=== PATIENT | female | born 1990 | race Caucasian/White ===

== ENCOUNTER 2020-05-31 16:13 | Emergency (ER) | payer BC, MEDICAID, OTHER ==
[2020-05-31] MEDS ORDERED: ACETAMINOPHEN TAB 325 MG TAB PO STA (19:26)
[2020-05-31] MEDS ORDERED: IBUPROFEN 600 MG TAB PO STA (19:26)
--- NOTE | 2020-05-31 19:42 | ED ---
URI HPI - General Chief Complaint: Upper Respiratory Infection Stated Complaint: SOB Time Seen by Provider: 05/31/20 19:26 Source: patient, family, RN notes reviewed Mode of arrival: wheelchair Limitations: altered mental status - History of Present Illness Initial Comments: Patient is a 29-year-old female that presents emergency department with her mot her complaining of fever, cough, shortness of breath. She does note that she was exposed on 05/27/2020 to a Covid-positive coworker. She stated that the first couple days she had no symptoms but starting Saturday she progressively started having an intermittent cough that was dry and a fever. She notes that it hasn't gotten any better over the last several days. She noted that she did get tested Saturday but has not gotten results yet from urgent care. Mother notes that she's been running 101-102 fever at home. Patient was in no apparent distress or pain while sitting up in bed during the exam and interview. She denied any chest pain headache nausea vomiting diarrhea constipation fatigue chills - Related Data Home Medications Medication Instructions Recorded Confirmed Multivitamins, Thera [Multivitamin 1 tab PO DAILY 05/31/20 05/31/20 (formulary)] Mv-Min/Vit C/Glut/Lysine/Hc124 1 tab PO DAILY PRN 05/31/20 05/31/20 [Airborne Tablet Chewable] Mv-Min/Vit C/Glut/Lysine/Hc124 2 tab PO HS PRN 05/31/20 05/31/20 [Airborne Tablet Chewable] Previous Rx's Medication Instructions Recorded Ascorbic Acid [Vitamin C] 1,000 mg PO DAILY 30 Days #30 05/31/20 tablet Zinc 100 mg PO DAILY 30 Days #60 tablet 05/31/20 predniSONE 50 mg PO DAILY #5 tab 05/31/20 Allergies Allergy/AdvReac Type Severity Reaction Status Date / Time Penicillins Allergy Anaphylaxis Verified 05/31/20 20:17 Review of Systems ROS Statement: Those systems with pertinent positive or pertinent negative responses have been documented in the HPI. ROS Other: All systems not noted in ROS Statement are negative. 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 History of Any Multi-Drug Resistant Organisms: None Reported Past Surgical History: Adenoidectomy, Ear Surgery, Orthopedic Surgery, Tonsillectomy Additional Past Surgical History / Comment(s): knee,tongue,eye surgery Past Psychological History: No Psychological Hx Reported Smoking Status: Never smoker Past Alcohol Use History: None Reported Past Drug Use History: None Reported General Exam Limitations: altered mental status General appearance: alert, in no apparent distress, obese Head exam: Present: atraumatic, normocephalic, normal inspection Eye exam: Present: normal appearance, PERRL, EOMI. Absent: scleral icterus, conjunctival injection, periorbital swelling ENT exam: Present: normal exam, mucous membranes moist Neck exam: Present: normal inspection. Absent: tenderness, meningismus, lymphadenopathy Respiratory exam: Present: decreased breath sounds. Absent: respiratory distress, wheezes, rales, rhonchi, stridor Cardiovascular Exam: Present: regular rate, normal rhythm, normal heart sounds. Absent: systolic murmur, diastolic murmur, rubs, gallop, clicks GI/Abdominal exam: Present: soft, normal bowel sounds. Absent: distended, tenderness, guarding, rebound, rigid Extremities exam: Present: normal inspection, full ROM, normal capillary refill. Absent: tenderness, pedal edema, joint swelling, calf tenderness Neurological exam: Present: alert, oriented X3, CN II-XII intact Psychiatric exam: Present: normal affect, normal mood Skin exam: Present: warm, dry, intact, normal color. Absent: rash Course Vital Signs 05/31/20 05/31/20 05/31/20 18:56 19:59 21:35 Temperature 99.9 F H 100.3 F H Pulse Rate 116 H 119 H 110 H Respiratory 22 18 18 Rate Blood Pressure 144/73 124/84 103/67 O2 Sat by Pulse 94 L 91 L 90 L Oximetry Medical Decision Making - Medical Decision Making 21-year-old female complaining of cough, fever, Covid exposure. Chest x-ray, Covid test, 650 mg of Tylenol and 600 mg Motrin ordered. Covid-positive. Patient informed of monoclonal antibody therapy as she does meet criteria, patient declined monoclonal antibody therapy. Mother was irritated at length of stay in the fact that an M.D. did not see her. She was also upset that we were unable to give anything other than Tylenol Motrin for fever. Nurse Yamilet convinced patient's mom to do monoclonal antibody therapy after I attended several times to educate her on it. Case discussed with Dr. Rizo, patient discharged home. - Lab Data Lab Results 05/31/20 Range/Units 19:01 Coronavirus (PCR) Detected A (Not Detectd) - Radiology Data Radiology results: report reviewed, image reviewed Chest x-ray: Bilateral pulmonary infiltrates and atelectasis. No obvious heart failure. Normal heart. Disposition Clinical Impression: COVID-19 Disposition: HOME SELF-CARE Condition: Stable Instructions (If sedation given, give patient instructions): Coronavirus Disease 2019 (COVID-19), Upper Respiratory Infection (ED) Additional Instructions: Please return to the Emergency Department if symptoms worsen or any other concerns. Conservative management with Tylenol Motrin alternating every several hours for symptomatically control of fever and general muscle aches. Increase oral fluids, rest. May come back for monoclonal antibody therapy if symptoms worsen or U decided that he wanted treatment. Follow-up with primary care as soon as possible. Her CBC guidelines and quarantine for 10-14 days from onset of symptoms. Take medications as prescribed. Prescriptions: predniSONE 50 mg PO DAILY #5 tab Ascorbic Acid [Vitamin C] 1,000 mg PO DAILY 30 Days #30 tablet Zinc 100 mg PO DAILY 30 Days #60 tablet Is patient prescribed a controlled substance at d/c from ED?: No Referrals: Nohelia Ervin DO [Primary Care Provider] - 1-2 days Time of Disposition: 22:23
--- NOTE | 2020-05-31 19:47 | XR ---
EXAMINATION TYPE: XR chest 2V DATE OF EXAM: 05/31/2020 COMPARISON: NONE HISTORY: Short of breath TECHNIQUE: 2 view FINDINGS: There is some mild infiltrate and atelectasis in the mid and lower lung johnson. Heart size is normal. There is no pleural effusion. Bony thorax is intact. IMPRESSION: Bilateral pulmonary infiltrates and atelectasis. No obvious heart failure. Normal heart.
[2020-05-31] MEDS ORDERED: BAMLANIVIMAB (EUA) 700 MG, ETESEVIMAB (EUA) 1,400 MG in SODIUM CHLORIDE 0.9% 50 ML IVPB ONE (21:30)
[2020-05-31 23:21] VITALS: BP 113/73; PULSE 99; RESP 16; TEMP 98.5
== END 2020-05-31 23:00 | disposition home or self-care (01) ==
LOC: EEVIPCON 16:13 → EC 16:13
DX: U07.1 COVID-19 (principal); Z88.0 Allergy status to penicillin
CPT/HCPCS: 71046; 87635; 96365; 99285

== ENCOUNTER → 2020-06-13 | Outpatient (CLI) | payer BC, MEDICAID, OTHER ==
--- NOTE | 2020-06-13 21:14 | XR ---
EXAMINATION TYPE: XR chest 2V DATE OF EXAM: 06/13/2020 COMPARISON: 05/31/2020 HISTORY: 29-year-old female U07.1, shortness of breath and increased heart rate. TECHNIQUE: Frontal and lateral views FINDINGS: Heart normal size. Aorta and pulmonary vasculature within normal limits. Large patient body habitus l imits evaluation but there has been significant improvement in aeration. No alfonzo consolidation remai ns. No pleural effusion. IMPRESSION: Significant interval improvement. No residual infiltrates are identified.
== END | disposition home or self-care (01) ==
LOC: LABWHC1 16:05
PROVIDERS: ATTEND Family Medicine
DX: U07.1 COVID-19 (principal); R00.2 Palpitations
CPT/HCPCS: 36415; 71046; 93005

== ENCOUNTER → 2020-11-08 | Outpatient (CLI) | payer BC, MEDICAID, OTHER ==
--- NOTE | 2020-11-08 11:14 | ECHOF ---
Referral Reason:R00.0 tachycardia MEASUREMENTS -------- HEIGHT: 162.6 cm WEIGHT: 113.4 kg BP: RVIDd: 3.2 cm (< 3.3) IVSd: 1.2 cm (0.6 - 1.1) LVIDd: 4.8 cm (3.9 - 5.3) LVPWd: 1.2 cm (0.6 - 1.1) IVSs: 1.5 cm LVIDs: 3.9 cm LVPWs: 1.2 cm LAESV Index (A-L): 15.36 ml/m Ao Diam: 2.2 cm (2.0 - 3.7) AV Cusp: 1.8 cm (1.5 - 2.6) LA Diam: 3.6 cm (2.7 - 3.8) MV E Marcus: 1.27 m/s MV DecT: 203 ms MV A Marcus: 0.13 m/s MV E/A Ratio: 10.03 FINDINGS -------- Resting tachycardia (HR>100bpm). This was a technically difficult study with suboptimal views. The left ventricular size is normal. There is mild concentric left ventricular hypertrophy. Overa ll left ventricular systolic function is low-normal with, an EF between 50 - 55 %. The right ventricle is normal in size. Normal LA size by volume 22+/-6 ml/m2. The right atrial size is normal. 5.0mg of Lumason was utilized for enhancement of images Interatrial and interventricular septum intact. The aortic valve was not well visualized. There is no evidence of aortic regurgitation. There is no evidence of aortic stenosis. The mitral valve was not well visualized. No mitral regurgitation. The tricuspid valve was not well visualized. Unable to estimate RVSP due to inadequate TR jet spect ral doppler profile. There is no pulmonic regurgitation present. The aortic root size is normal. IVC Not well visulized. There is no pericardial effusion. CONCLUSIONS -------- 1. This was a technically difficult study with suboptimal views. 2. The left ventricular size is normal. 3. There is mild concentric left ventricular hypertrophy. 4. Overall left ventricular systolic function is low-normal with, an EF between 50 - 55 %. ROOM CLEANER: Latoya Tatum [facility]
== END | disposition home or self-care (01) ==
LOC: RADECHMAIN 08:15
PROVIDERS: ATTEND Family Medicine
DX: R00.0 Tachycardia, unspecified (principal)
CPT/HCPCS: 93306; Q9950

== ENCOUNTER → 2024-05-14 | Outpatient (CLI) | payer BC, MEDICAID, OTHER ==
--- NOTE | 2024-05-15 07:39 | XR ---
EXAMINATION TYPE: XR foot complete RT DATE OF EXAM: 05/14/2024 4:48 PM COMPARISON: None CLINICAL INDICATION: Female, 33 years old with history of L03.031, M79.671; PHH, pain TECHNIQUE: XR foot complete RT examined in the AP, oblique, and lateral projections. FINDINGS: Soft tissue swelling without evidence of subcutaneous gas or erosion to suggest osteomyelitis involvi ng the first digi. No evidence of any acute osseous pathology. IMPRESSION: Soft tissue swelling of the first digit without evidence for osteomyelitis. [facility], , 05/15/2024 7:36 AM
== END | disposition home or self-care (01) ==
LOC: RADXRMAIN 16:36
PROVIDERS: ATTEND Podiatrist Primary Podiatric Medicine
DX: L03.031 Cellulitis of right toe (principal); M79.89 Other specified soft tissue disorders

== ENCOUNTER 2024-09-09 14:58 | Inpatient (IN) | payer BC, MEDICAID, OTHER ==
[2024-09-09 16:10] LABS: Basophils # (A) 0.04 10*3/uL (0.00-0.10); Basophils % (A) 0.3 %; Eosinophils # (A) 0.00 10*3/uL (0.04-0.35); Eosinophils % (A) 0.0 %; HCT 43.0 % (37.2-46.3); HGB 15.0 g/dL (12.0-15.0); Lymphocytes # (A) 0.97 10*3/uL (0.90-5.00); Lymphocytes % (A) 6.1 %; MCH 29.2 pg (27.0-32.0); MCHC 34.9 g/dL (32.0-37.0); MCV 83.7 fL (80.0-97.0); Monocytes # (A) 1.18 10*3/uL (0.20-1.00); Monocytes % (A) 7.4 %; Neutrophils # (A) 13.57 10*3/uL (1.80-7.70); Neutrophils % (A) 85.5 %; Platelet Count 208 10*3/uL (140-440); RBC 5.14 10*6/uL (4.10-5.20); RDW 12.9 % (11.5-14.5); WBC 15.87 10*3/uL (4.50-10.00)
[2024-09-09 16:20] LABS: ALT 23 U/L (4-34); AST 19 U/L (14-36); African American GFR (CKD) >90 (>60 ml/min/1.73 sqM); Albumin 4.3 g/dL (3.5-5.0); Alkaline Phosphatase 106 U/L (38-126); Anion Gap 13 mmol/L; Blood Urea Nitrogen 9 mg/dL (7-17); Calcium 9.2 mg/dL (8.4-10.2); Carbon Dioxide 23 mmol/L (22-30); Chloride 103 mmol/L (98-107); Glucose 122 mg/dL (74-99); Non-African American GFR(CKD) >90 (>60 ml/min/1.73 sqM); Potassium 4.3 mmol/L (3.5-5.1); Sodium 139 mmol/L (137-145); Total Protein 7.4 g/dL (6.3-8.2)
[2024-09-09 16:21] LABS: INR 1.0 (<1.2); Partial Thromboplastin Time 25.5 sec (22.0-30.0); Prothrombin Time 11.1 sec (10.0-12.5)
--- NOTE | 2024-09-09 16:23 | XR ---
EXAMINATION TYPE: XR chest 2V DATE OF EXAM: 09/09/2024 4:19 PM COMPARISON: Chest radiographs from 06/13/2020. CLINICAL INDICATION: Female, 33 years old with history of difficulty breathing; [facility] TECHNIQUE: XR chest 2V Frontal and lateral views of the chest. FINDINGS: Lungs/Pleura: Left midlung airspace opacities. There is no evidence of pleural effusion, focal consol idation, or pneumothorax. Pulmonary vascularity: Unremarkable. Heart/mediastinum: Cardiomediastinal silhouette is unremarkable. Musculoskeletal: No acute osseous pathology. IMPRESSION: Left midlung airspace opacities correlate for pneumonia. [facility], , 09/09/2024 4:20 PM
--- NOTE | 2024-09-09 16:45 | ED ---
General Adult HPI - General Chief complaint: Shortness of Breath Stated complaint: shortness of breath Time Seen by Provider: 09/09/24 16:35 Source: patient, family, RN notes reviewed Mode of arrival: wheelchair Limitations: no limitations - History of Present Illness Initial comments: Patient is a 33-year-old female present to the emergency department with vomiting and dyspnea. Symptoms started just couple days ago. Last emesis was around 1130 this morning. Heart rate has been higher than normal at home. History provided by family members as patient has developmental delay. No history of previous lung disease. - Related Data Home Medications Medication Instructions Recorded Confirmed Multivitamins, Thera [Multivitamin 1 tab PO DAILY 05/31/20 05/31/20 (formulary)] Mv-Min/Vit C/Glut/Lysine/Hc124 1 tab PO DAILY PRN 05/31/20 05/31/20 [Airborne Tablet Chewable] Mv-Min/Vit C/Glut/Lysine/Hc124 2 tab PO HS PRN 05/31/20 05/31/20 [Airborne Tablet Chewable] Previous Rx's Medication Instructions Recorded Ascorbic Acid [Vitamin C] 1,000 mg PO DAILY 30 Days #30 05/31/20 tablet Zinc 100 mg PO DAILY 30 Days #60 tablet 05/31/20 predniSONE 50 mg PO DAILY #5 tab 05/31/20 Allergies Allergy/AdvReac Type Severity Reaction Status Date / Time Penicillins Allergy Anaphylaxis Verified 05/31/20 20:17 Review of Systems ROS Statement: Those systems with pertinent positive or pertinent negative responses have been documented in the HPI. ROS Other: All systems not noted in ROS Statement are negative. 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 History of Any Multi-Drug Resistant Organisms: None Reported Past Surgical History: Adenoidectomy, Ear Surgery, Orthopedic Surgery, Tonsillectomy Additional Past Surgical History / Comment(s): knee,tongue,eye surgery Past Psychological History: No Psychological Hx Reported Smoking Status: Never smoker Past Alcohol Use History: None Reported Past Drug Use History: None Reported General Exam Limitations: no limitations General appearance: alert Head exam: Present: normocephalic Eye exam: Present: normal appearance Neck exam: Present: normal inspection Respiratory exam: Present: rales (Left midlung) Cardiovascular Exam: Present: tachycardia GI/Abdominal exam: Present: soft. Absent: tenderness Extremities exam: Present: normal inspection Neurological exam: Present: alert Psychiatric exam: Present: normal affect, normal mood Skin exam: Present: normal color Course Vital Signs 09/09/24 09/09/24 15:18 16:48 Temperature 98.7 F Pulse Rate 118 H 117 H Respiratory 24 30 H Rate Blood Pressure 184/79 134/73 O2 Sat by Pulse 98 98 Oximetry EKG Findings - EKG Results: EKG: interpreted by ERMD (Left axis. Poor R wave progression. Nonspecific T waves.), sinus rhythm EKG shows: tachycardia Medical Decision Making - Medical Decision Making Was pt. sent in by a medical professional or institution (BRAD Moore, ENGRAVING SUPERVISOR, urgent care, hospital, or alf...) When possible be specific @ -No Did you speak to anyone other than the patient for history (EMS, parent, family, police, friend...)? What history was obtained from this source @ -Mother is present and provides history as patient has developmental delay and is a very poor historian Did you review nursing and triage notes (agree or disagree)? Why? @ -I reviewed and agree with nursing and triage notes Were old charts reviewed (outside hosp., previous admission, EMS record, old EKG, old radiological studies, urgent care reports/EKG's, alf records)? Report findings @ -No old charts were reviewed Differential Diagnosis (chest pain, altered mental status, abdominal pain women, abdominal pain men, vaginal bleeding, weakness, fever, dyspnea, syncope, headache, dizziness, GI bleed, back pain, seizure, CVA, palpatations, mental health, musculoskeletal)? @ -Differential Dyspnea: Coronary syndrome, arrhythmia, tamponade, asthma, COPD, pulmonary embolism, pneumonia, pneumothorax, pulmonary effusion, anaphylaxis, diabetic ketoacidosis, flailed chest, pulmonary contusion, diaphragmatic rupture, anemia, neuromuscular, this is not meant to be an all-inclusive list. EKG interpreted by me (3pts min.). @ -As above X-rays interpreted by me (1pt min.). @ -Chest x-ray shows left-sided infiltrate CT interpreted by me (1pt min.). @ -None done U/S interpreted by me (1pt. min.). @ -None done What testing was considered but not performed or refused? (CT, X-rays, U/S, labs)? Why? @ -None What meds were considered but not given or refused? Why? @ -None Did you discuss the management of the patient with other professionals (professionals i.e. , PA, ENGRAVING SUPERVISOR, lab, RT, psych nurse, social security specialist, wheelchair van driver, teacher, fire prevention officer, egg caser)? Give summary @ -Dr. Harper to admit, Dr. She will Was smoking cessation discussed for >3mins.? @ -No Was critical care preformed (if so, how long)? @ -33 minutes critical care time Were there social determinants of health that impacted care today? How? (Homelessness, low income, unemployed, alcoholism, drug addiction, transportation, low edu. Level, literacy, decrease access to med. care, usp, rehab)? @ -No Was there de-escalation of care discussed even if they declined (Discuss DNR or withdrawal of care, Hospice)? DNR status @ -No What co-morbidities impacted this encounter? (DM, HTN, Smoking, COPD, CAD, Cancer, CVA, ARF, Chemo, Hep., AIDS, mental health diagnosis, sleep apnea, morbid obesity)? @ -None Was patient admitted / discharged? Hospital course, mention meds given and route, prescriptions, significant lab abnormalities, going to OR and other pertinent info. @ -Patient presents with vomiting and dyspnea. Patient does have pneumonia on x-ray with elevated white count and meets SIRS criteria. There is concern for s epsis diagnosed at 1640. Blood culture, lactic acid and IV antibiotics have all been ordered. Admission orders written. Patient and family are updated on results and plan. Undiagnosed new problem with uncertain prognosis? @ -No Drug Therapy requiring intensive monitoring for toxicity (Heparin, Nitro, Insulin, Cardizem)? @ -No Were any procedures done? @ -No Diagnosis/symptom? @ -Pneumonia Acute, or Chronic, or Acute on Chronic? @ -Acute Uncomplicated (without systemic symptoms) or Complicated (systemic symptoms)? @ -Complicated with sepsis Side effects of treatment? @ -No Exacerbation, Progression, or Severe Exacerbation? @ -No Poses a threat to life or bodily function? How? (Chest pain, [place], [place], pneumonia, PE, COPD, DKA, ARF, appy, cholecystitis, CVA, Diverticulitis, Homicidal, Suicidal, threat to staff... and all critical care pts) @ -Threat to pulmonary function - Lab Data Result diagrams: 09/09/24 15:47 09/09/24 15:47 Lab Results 09/09/24 09/09/24 09/09/24 Range/Units 15:47 15:47 15:47 WBC 15.87 H (4.50-10.00) 10*3/uL RBC 5.14 (4.10-5.20) 10*6/uL Hgb 15.0 (12.0-15.0) g/dL Hct 43.0 (37.2-46.3) % MCV 83.7 (80.0-97.0) fL MCH 29.2 (27.0-32.0) pg MCHC 34.9 (32.0-37.0) g/dL Plt Count 208 (140-440) 10*3/uL MPV 10.3 (9.5-12.2) fL Immature Gran % (Auto) 0.7 % Neutrophils % 85.5 % Lymphocytes % 6.1 % Monocytes % 7.4 % Eosinophils % 0.0 % Basophils % 0.3 % Immature Gran # 0.11 H (0.00-0.04) 10*3/uL Neutrophils # 13.57 H (1.80-7.70) 10*3/uL Lymphocytes # 0.97 (0.90-5.00) 10*3/uL Monocytes # 1.18 H (0.20-1.00) 10*3/uL Eosinophils # 0.00 L (0.04-0.35) 10*3/uL Basophils # 0.04 (0.00-0.10) 10*3/uL PT 11.1 (10.0-12.5) sec INR 1.0 (<1.2) APTT 25.5 (22.0-30.0) sec Sodium 139 (137-145) mmol/L Potassium 4.3 (3.5-5.1) mmol/L Chloride 103 (98-107) mmol/L Carbon Dioxide 23 (22-30) mmol/L Anion Gap 13 mmol/L BUN 9 (7-17) mg/dL Creatinine 0.70 (0.52-1.04) mg/dL Est GFR (CKD-EPI)AfAm >90 (>60 ml/min/1.73 sqM) Est GFR (CKD-EPI)NonAf >90 (>60 ml/min/1.73 sqM) Glucose 122 H (74-99) mg/dL Plasma Lactic Acid Gavin (0.7-2.0) mmol/L Calcium 9.2 (8.4-10.2) mg/dL Total Bilirubin 1.4 H (0.2-1.3) mg/dL AST 19 (14-36) U/L ALT 23 (4-34) U/L Alkaline Phosphatase 106 (38-126) U/L Troponin I (0.000-0.034) ng/mL Total Protein 7.4 (6.3-8.2) g/dL Albumin 4.3 (3.5-5.0) g/dL 09/09/24 09/09/24 Range/Units 15:47 15:47 WBC (4.50-10.00) 10*3/uL RBC (4.10-5.20) 10*6/uL Hgb (12.0-15.0) g/dL Hct (37.2-46.3) % MCV (80.0-97.0) fL MCH (27.0-32.0) pg MCHC (32.0-37.0) g/dL Plt Count (140-440) 10*3/uL MPV (9.5-12.2) fL Immature Gran % (Auto) % Neutrophils % % Lymphocytes % % Monocytes % % Eosinophils % % Basophils % % Immature Gran # (0.00-0.04) 10*3/uL Neutrophils # (1.80-7.70) 10*3/uL Lymphocytes # (0.90-5.00) 10*3/uL Monocytes # (0.20-1.00) 10*3/uL Eosinophils # (0.04-0.35) 10*3/uL Basophils # (0.00-0.10) 10*3/uL PT (10.0-12.5) sec INR (<1.2) APTT (22.0-30.0) sec Sodium (137-145) mmol/L Potassium (3.5-5.1) mmol/L Chloride (98-107) mmol/L Carbon Dioxide (22-30) mmol/L Anion Gap mmol/L BUN (7-17) mg/dL Creatinine (0.52-1.04) mg/dL Est GFR (CKD-EPI)AfAm (>60 ml/min/1.73 sqM) Est GFR (CKD-EPI)NonAf (>60 ml/min/1.73 sqM) Glucose (74-99) mg/dL Plasma Lactic Acid Gavin 1.6 (0.7-2.0) mmol/L Calcium (8.4-10.2) mg/dL Total Bilirubin (0.2-1.3) mg/dL AST (14-36) U/L ALT (4-34) U/L Alkaline Phosphatase (38-126) U/L Troponin I <0.012 (0.000-0.034) ng/mL Total Protein (6.3-8.2) g/dL Albumin (3.5-5.0) g/dL Disposition Clinical Impression: Pneumonia Disposition: ADMITTED IP TO THIS [facility] Condition: Serious Is patient prescribed a controlled substance at d/c from ED?: No Referrals: Nohelia Ervin DO [Primary Care Provider] - 1-2 days Time of Disposition: 16:52
[2024-09-09] MEDS ORDERED: PNEUMONIA PROTOCOL UTILIZED 1 EACH MISC PO PRN (16:46)
[2024-09-09] MEDS: ONDANSETRON 4 MG/2 ML VIAL IVP STA (16:54)
[2024-09-09] MEDS: FAMOTIDINE 20 MG/2 ML VIAL IV STA (16:54)
[2024-09-09] MEDS: SODIUM CHLORIDE 0.9% 1,000 ML IV SCH (17:13)
[2024-09-09] MEDS: AZITHROMYCIN 500 MG in SODIUM CHLORIDE 0.9% 250 ML IVPB STA (17:47)
[2024-09-09] MEDS: ACETAMINOPHEN TAB 500 MG TAB PO STA (17:47)
[2024-09-09] MEDS: IBUPROFEN 600 MG TAB PO STA (17:47)
--- NOTE | 2024-09-09 21:30 | P.HPIM ---
History of Present Illness H&P Date: 09/09/24 Chief Complaint: Cough This is a pleasant 33-year-old patient with some mental impairment. History is obtained by patient's mother who is a nurse at the bedside. 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 Diagnosed by Dr. Villatoro at [facility]. It gives patient some mental impairment. Patient is able to read and do math. Patient also has a stiff hip. Also has trouble with the knee but high risk for surgery at the present time. 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 Has tachycardia resulting from COVID. On Saturday that is 4 days ago started up with a dry cough. Symptoms gradually became worse. And much so a lot of coughing yesterday. No no obvious fever at home. No sputum production. Decreased appetite. Finally decided come to the ER. In the ER patient did spike a fever 104. And a heart rate of 122. Being septic. Being admitted for the same. Review of system could not be done because patient rather tired Social history: Patient lives with her parents. No alcohol no smoking Physical examination: VITAL SIGNS: 104, 122, 24, 134 x 73, 92% room air upon presentation GENERAL: BMI 44.6, reclining in bed a bit tired slightly lethargic. Perspiring. EYES: Pupils equal. Conjunctiva melquiades l. HEENT: External appearance of nose and ears normal, oral cavity grossly normal. NECK: JVD not raised; masses not palpable. HEART: First and second heart sounds are normal; no edema. LUNGS: Respiratory rate increased, diminished breath sounds. ABDOMEN: Soft, nontender, liver spleen not palpable, no masses palpable. PSYCH: Tired lethargic but able to answer some simple questions l. MUSCULOSKELETAL:No Clubbing/cyanosis;muscles-grossly intact NEUROLOGICAL: Cranial nerves grossly intact; no facial asymmetry, power and sensation grossly intact. LYMPHATICS: No lymph nodes palpable in the axilla and neck INVESTIGATIONS, reviewed in the clinical context: September 09, 2024: White count 15.8 hemoglobin 15 platelets 208 sodium 139 potassium 4.3 BUN 9 creatinine 0.7 Troponin I less than 0.012 EKG tracing personally reviewed by me-normal sinus rhythm. Heart rate 111 Chest x-ray film personally reviewed by me-significant infiltrate in the left middle lower lobe Assessment plan: - Severe bilobar pneumonia suspect gram-negative organism, causing hypoxic sepsis IV ceftriaxone, IV Zithromax IV fluids. 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 Currently high risk for surgery being followed by orthopedics. - Acute hypoxic respiratory failure from pneumonia Supplemental oxygen Care was discussed with patient by the bedside. Questions answered. 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 History of Any Multi-Drug Resistant Organisms: None Reported Past Surgical History: Adenoidectomy, Ear Surgery, Orthopedic Surgery, Tonsillectomy Additional Past Surgical History / Comment(s): knee,tongue,eye surgery Past Psychological History: No Psychological Hx Reported Smoking Status: Never smoker Past Alcohol Use History: None Reported Past Drug Use History: None Reported Medications and Allergies Home Medications Medication Instructions Recorded Confirmed Type Multivitamins, Thera [Multivitamin 2 tab PO DAILY 05/31/20 09/09/24 History (formulary)] Mv-Min/Vit C/Glut/Lysine/Hc124 3 tab PO DAILY 05/31/20 09/09/24 History [Airborne Tablet Chewable] Metoprolol Succinate (ER) [Toprol 100 mg PO DAILY 09/09/24 09/09/24 History XL] Metoprolol Succinate [Metoprolol 25 mg PO HS 09/09/24 09/09/24 History Succinate ER] Allergies Allergy/AdvReac Type Severity Reaction Status Date / Time Penicillins Allergy Anaphylaxis Verified 09/09/24 17:55 Physical Exam Vitals: Vital Signs Temp Pulse Resp BP Pulse Ox 09/09/24 21:00 86 16 122/65 95 09/09/24 20:01 98.7 F 92 20 122/65 97 09/09/24 18:34 100.6 F H 109 H 19 107/59 97 09/09/24 17:33 104 F H 122 H 24 134/73 92 L 09/09/24 16:48 117 H 30 H 134/73 98 09/09/24 15:18 98.7 F 118 H 24 184/79 98 Intake and Output 09/09/24 09/09/24 09/09/24 06:59 14:59 22:59 Other: Weight 117.934 kg Results CBC & Chem 7: 09/09/24 15:47 09/09/24 15:47 Labs: Abnormal Lab Results - Last 24 Hours (Table) 09/09/24 09/09/24 Range/Units 15:47 15:47 WBC 15.87 H (4.50-10.00) 10*3/uL Immature Gran # 0.11 H (0.00-0.04) 10*3/uL Neutrophils # 13.57 H (1.80-7.70) 10*3/uL Monocytes # 1.18 H (0.20-1.00) 10*3/uL Eosinophils # 0.00 L (0.04-0.35) 10*3/uL Glucose 122 H (74-99) mg/dL Total Bilirubin 1.4 H (0.2-1.3) mg/dL
[2024-09-09] MEDS: ENOXAPARIN 40 MG/0.4 ML SYRINGE SQ SCH (22:19)
[2024-09-09] MEDS: LACTATED RINGERS 1,000 ML IV SCH (23:04)
--- NOTE | 2024-09-10 07:21 | XR ---
EXAMINATION TYPE: XR chest 2V DATE OF EXAM: 09/10/2024 6:55 AM COMPARISON: Chest radiographs from 09/09/2024 TECHNIQUE: XR chest 2V Frontal and lateral views of the chest. CLINICAL INDICATION:Female, 33 years old with history of pneumonia; FINDINGS: Lungs/Pleura: No pleural effusion or pneumothorax. Bilateral multifocal patchy airspace opacities. Pulmonary vascularity: Unremarkable. Heart/mediastinum: Cardiomediastinal silhouette is enlarged and stable. Musculoskeletal: No acute osseous pathology. IMPRESSION: Bilateral multifocal patchy airspace opacities concerning for pneumonia. [facility], , 09/10/2024 7:18 AM
[2024-09-10] MEDS: METOPROLOL SUCCINATE (ER) 100 MG TAB.ER.24H PO SCH (08:46)
[2024-09-10] MEDS: MULTIVITAMINS, THERA 1 EACH TAB PO SCH (08:46)
[2024-09-10] MEDS: METOPROLOL TARTRATE 25 MG TAB PO SCH (14:26)
[2024-09-10] MEDS: NAPROXEN 250 MG TAB PO PRN (14:27)
[2024-09-10] MEDS: AZITHROMYCIN 500 MG TAB PO SCH (17:06)
--- NOTE | 2024-09-10 17:54 | P.PN ---
Progress Note - Text Progress Note Date: 09/10/24 Chief Complaint: Cough This is a pleasant 33-year-old patient with some mental impairment. History is obtained by patient's mother who is a nurse at the bedside. 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 Diagnosed by Dr. Villatoro at [facility]. It gives patient some mental impairment. Patient is able to read and do math. Patient also has a stiff hip. Also has trouble with the knee but high risk for surgery at the present time. 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 Has tachycardia resulting from COVID. On Saturday that is 4 days ago started up with a dry cough. Symptoms gradually became worse. And much so a lot of coughing yesterday. No no obvious fever at home. No sputum production. Decreased appetite. Finally decided come to the ER. In the ER patient did spike a fever 104. And a heart rate of 122. Being septic. Being admitted for the same. September 10: Patient admitted with severe sepsis pneumonia. IV ceftriaxone. Lactated Ringer's and IV ceftriaxone. Patient was seen this morning. Up in a chair. Had some chills. Grandmother at the bedside. Discussed. Some tachycardia. Lopressor increased to initially 25 twice daily.. Coughing is decreased. Had all of breakfast. Active Medications Azithromycin (Azithromycin 500 Mg Tab) 500 mg PO DAILY@1700 [facility]; Protocol Stop: 09/11/24 17:01 Last Admin: 09/10/24 17:06 Dose: 500 mg Enoxaparin Sodium (Enoxaparin 40 Mg/0.4 Ml Syringe) 40 mg SQ DAILY [facility] Last Admin: 09/10/24 08:44 Dose: Not Given Lactated Ringer's (Lactated Ringers) 1,000 mls @ 150 mls/hr IV .Q6H40M [facility] Last Admin: 09/10/24 17:11 Dose: Not Given Ceftriaxone Sodium 2 gm/ (Sodium Chloride) 50 mls @ 100 mls/hr IVPB Q12H [facility]; Protocol Stop: 09/11/24 17:29 Last Admin: 09/10/24 17:06 Dose: 100 mls/hr Metoprolol Succinate (Metoprolol Succinate (Er) 100 Mg Tab.Er.24h) 100 mg PO DAILY [facility] Last Admin: 09/10/24 08:46 Dose: 100 mg Metoprolol Tartrate (Metoprolol Tartrate 25 Mg Tab) 25 mg PO BID [facility] Last Admin: 09/10/24 14:26 Dose: 25 mg Miscellaneous Information (Pneumonia Protocol Utilized 1 Each Misc) 1 each PO ONCE PRN PRN Reason: Per Protocol Multivitamins (Multivitamins, Thera 1 Each Tab) 1 each PO DAILY [facility] Last Admin: 09/10/24 08:46 Dose: 1 each Naproxen (Naproxen 250 Mg Tab) 250 mg PO Q8HR PRN PRN Reason: pain Last Admin: 09/10/24 14:27 Dose: 250 mg Social history: Patient lives with her parents. No alcohol no smoking Physical examination: VITAL SIGNS: Tmax 100.6 yesterday evening, 118, 16, 160 x 83, 98% 2 L GENERAL: BMI 44.6, up in a recliner. Perspiring. EYES: Pupils equal. Conjunctiva melquiades l. HEENT: External appearance of nose and ears normal, oral cavity grossly normal.. 2 keloids on the right side of the neck NECK: JVD not raised; masses not palpable. HEART: First and second heart sounds are normal; no edema. LUNGS: Respiratory rate increased, diminished breath sounds. ABDOMEN: Soft, nontender, liver spleen not palpable, no masses palpable. PSYCH: Tired lethargic but able to answer some simple questions l. MUSCULOSKELETAL:No Clubbing/cyanosis;muscles-grossly intact NEUROLOGICAL: Cranial nerves grossly intact; no facial asymmetry, power and sensation grossly intact. LYMPHATICS: No lymph nodes palpable in the axilla and neck INVESTIGATIONS, reviewed in the clinical context: September 09, 2024: White count 15.8 hemoglobin 15 platelets 208 sodium 139 potassium 4.3 BUN 9 creatinine 0.7 Troponin I less than 0.012 EKG tracing personally reviewed by me-normal sinus rhythm. Heart rate 111 Chest x-ray film personally reviewed by me-significant infiltrate in the left middle lower lobe Assessment plan: - Severe bilobar pneumonia suspect gram-negative organism, causing hypoxic sepsis: Some improvement IV ceftriaxone, IV Zithromax IV fluids. 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 Currently high risk for surgery being followed by orthopedics. - Acute hypoxic respiratory failure from pneumonia Supplemental oxygen Care was discussed with the patient and the grandmother at the bedside. Past Medical History Additional Past Medical History / Comment(s): leocnio taybi syndrome History of Any Multi-Drug Resistant Organisms: None Reported Past Surgical History: Adenoidectomy, Ear Surgery, Orthopedic Surgery, Tonsillectomy Additional Past Surgical History / Comment(s): knee,tongue,eye surgery Past Psychological History: No Psychological Hx Reported Smoking Status: Never smoker Past Alcohol Use History: None Reported Past Drug Use History: None Reported
[2024-09-10] MEDS: ACETAMINOPHEN TAB 500 MG TAB PO PRN (21:21)
[2024-09-10] MEDS: LEVOFLOXACIN 750 MG TAB PO SCH (23:07)
[2024-09-11 04:39] LABS: ALT 64 U/L (4-34); AST 123 U/L (14-36); African American GFR (CKD) >90 (>60 ml/min/1.73 sqM); Albumin 3.3 g/dL (3.5-5.0); Albumin/Globulin Ratio 1.1; Alkaline Phosphatase 117 U/L (38-126); Anion Gap 10 mmol/L; Blood Urea Nitrogen 14 mg/dL (7-17); Calcium 9.2 mg/dL (8.4-10.2); Carbon Dioxide 24 mmol/L (22-30); Chloride 104 mmol/L (98-107); Globulin 2.9 g/dL; Glucose 123 mg/dL (74-99); Non-African American GFR(CKD) >90 (>60 ml/min/1.73 sqM); Potassium 4.3 mmol/L (3.5-5.1); Sodium 138 mmol/L (137-145); Total Protein 6.2 g/dL (6.3-8.2)
[2024-09-11 05:11] LABS: Basophils # (A) 0.03 10*3/uL (0.00-0.10); Basophils % (A) 0.3 %; Eosinophils # (A) 0.18 10*3/uL (0.04-0.35); Eosinophils % (A) 1.5 %; HCT 40.1 % (37.2-46.3); HGB 13.5 g/dL (12.0-15.0); Lymphocytes # (A) 1.31 10*3/uL (0.90-5.00); Lymphocytes % (A) 11.2 %; MCH 28.5 pg (27.0-32.0); MCHC 33.7 g/dL (32.0-37.0); MCV 84.8 fL (80.0-97.0); Monocytes # (A) 0.91 10*3/uL (0.20-1.00); Monocytes % (A) 7.8 %; Neutrophils # (A) 9.16 10*3/uL (1.80-7.70); Neutrophils % (A) 78.6 %; Platelet Count 205 10*3/uL (140-440); RBC 4.73 10*6/uL (4.10-5.20); RDW 13.2 % (11.5-14.5); WBC 11.66 10*3/uL (4.50-10.00)
--- NOTE | 2024-09-11 12:04 | CDI ---
Documentation Clarification Form Date: 09/11/2024 11:30:50 AM From: Linette Gomez RN CCDS Phone: [phone] Admit Date: 09/09/2024 04:50:00 PM Patient Name: Lsely Stahl Visit Number: [id number] Discharge Date: ATTENTION: The Clinical Documentation Specialists (CDI) and [facility] Coding Staff appreciate your assistance in clarifying documentation. Please respond to the clarification below the line at the bottom and electronically sign. The CDI & [facility] Coding staff will review the response and follow-up if needed. Please note: Queries are made part of the Legal Health Record. If you have any questions, please contact the author of this message via ITS. Doctor: Kendall Harper Sepsis is documented 09/09, HP which may lack sufficient clinical evidence/support in the medical record. Additional clarification is requested. History/Risk Factors: 33 year old male presents to the ED with vomiting and dyspnea, started a couple days ago. Medical history: developmental delay, tachycardia resulting from COVID, Allan Taybi syndrome. 09/09, HP. Clinical Indicators: VSS:09/09 15:18 B/P 184/79 HR 118 Temp 98.7F Oral RR 24; SpO2 98% ra 09/09 17:33 B/P 134/73 HR 122 Temp 104F Axillary RR 24 SpO2 92% ra Labs: 09/09: Wbc 15.87, Neutrophils 13.57 CXR, 09/09: Left midlung airspace opacities correlate for pneumonia HP 09/09: Sinus tachycardia from sepsis HP 09/09: Chronic sinus tachycardia from previous COVD HP 09/09: General assessment: Reclining in bed a bit tired slightly lethargic. Perspiring. Treatment: 09/09: Azithromycin IVPB x1; 09/09 Cefriaxone IVPB x 1; 09/10 Ceftriaxone IVPB Q12H d/c after 2 doses; 09/10 Zithromax po Daily d/cd after one dose; 09/10 Levaquin po HS Fluids: 09/10 0.9ns IV 130cc/hr, 09/09 Lactated Ringers IV 150cc/hr After work up and study, please clarify which diagnosis is most appropriate? [ ] Sepsis is ruled out. The patient had a localized infection without systemic response or organ dysfunction. [ ] Sepsis was initially suspected, but subsequent clinical findings did not support the diagnosis, and it has been ruled out. [ + ] Sepsis is clinically supported as evidenced by these additional clinical indicators: _See notes, vitals and labs [ ] Other, please specify [ ] Unable to determine (Template Last Reviewed: March 2023) KATHI
--- NOTE | 2024-09-11 17:27 | P.PN ---
Progress Note - Text Progress Note Date: 09/11/24 Chief Complaint: Cough This is a pleasant 33-year-old patient with some mental impairment. History is obtained by patient's mother who is a nurse at the bedside. 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 Diagnosed by Dr. Villatoro at [facility]. It gives patient some mental impairment. Patient is able to read and do math. Patient also has a stiff hip. Also has trouble with the knee but high risk for surgery at the present time. 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 Has tachycardia resulting from COVID. On Saturday that is 4 days ago started up with a dry cough. Symptoms gradually became worse. And much so a lot of coughing yesterday. No no obvious fever at home. No sputum production. Decreased appetite. Finally decided come to the ER. In the ER patient did spike a fever 104. And a heart rate of 122. Being septic. Being admitted for the same. September 10: Patient admitted with severe sepsis pneumonia. IV ceftriaxone. Lactated Ringer's and IV ceftriaxone. Patient was seen this morning. Up in a chair. Had some chills. Grandmother at the bedside. Discussed. Some tachycardia. Lopressor increased to initially 25 twice daily.. Coughing is decreased. Had all of breakfast. September 11: Up in recliner. Mother at the bedside. Did spike her into fever last night. She looks better today. Eating 100%. Urine Legionella antigen came back positive. Antibiotic changed to Levaquin. Discussed with mother. Will watch all another 24 hours. Active Medications Acetaminophen (Acetaminophen Tab 500 Mg Tab) 500 mg PO Q6HR PRN PRN Reason: Fever and/ or Pain Last Admin: 09/10/24 21:21 Dose: 500 mg Enoxaparin Sodium (Enoxaparin 40 Mg/0.4 Ml Syringe) 40 mg SQ DAILY [facility] Last Admin: 09/11/24 08:54 Dose: Not Given Lactated Ringer's (Lactated Ringers) 1,000 mls @ 150 mls/hr IV .Q6H40M [facility] Last Admin: 09/11/24 17:05 Dose: Not Given Levofloxacin (Levofloxacin 750 Mg Tab) 750 mg PO [facility]; Protocol Last Admin: 09/10/24 23:07 Dose: 750 mg Metoprolol Succinate (Metoprolol Succinate (Er) 100 Mg Tab.Er.24h) 100 mg PO DAILY [facility] Last Admin: 09/11/24 08:55 Dose: 100 mg Metoprolol Tartrate (Metoprolol Tartrate 25 Mg Tab) 25 mg PO BID [facility] Last Admin: 09/11/24 08:54 Dose: 25 mg Miscellaneous Information (Pneumonia Protocol Utilized 1 Each Misc) 1 each PO ONCE PRN PRN Reason: Per Protocol Multivitamins (Multivitamins, Thera 1 Each Tab) 1 each PO DAILY [facility] Last Admin: 09/11/24 08:54 Dose: 1 each Naproxen (Naproxen 250 Mg Tab) 250 mg PO Q8HR PRN PRN Reason: pain Last Admin: 09/10/24 23:13 Dose: 250 mg Social history: Patient lives with her parents. No alcohol no smoking Physical examination: VITAL SIGNS: Tmax 102.1, 99, 97,, 19, 116 x 72, 97% room air GENERAL: BMI 44.6, up in a recliner. Looking better EYES: Pupils equal. Conjunctiva melquiades l. HEENT: External appearance of nose and ears normal, oral cavity grossly normal.. 2 keloids on the right side of the neck NECK: JVD not raised; masses not palpable. HEART: First and second heart sounds are normal; no edema. LUNGS: Respiratory rate increased, diminished breath sounds. ABDOMEN: Soft, nontender, liver spleen not palpable, no masses palpable. PSYCH: Tired. But able to answer questions. MUSCULOSKELETAL:No Clubbing/cyanosis;muscles-grossly intact INVESTIGATIONS, reviewed in the clinical context: September 11: White count 9.6 hemoglobin 13.5 potassium 4.3 creatinine 0.56 Urine Legionella antigen positive September 09, 2024: White count 15.8 hemoglobin 15 platelets 208 sodium 139 potassium 4.3 BUN 9 creatinine 0.7 Troponin I less than 0.012 EKG tracing personally reviewed by me-normal sinus rhythm. Heart rate 111 Chest x-ray film personally reviewed by me-significant infiltrate in the left middle lower lobe Assessment plan: - Severe bilobar pneumonia s secondary to Legionella causing hypoxic sepsis: Some improvement Harvey changed to Levaquin IV fluids. 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 Currently high risk for surgery being followed by orthopedics. - Acute hypoxic respiratory failure from pneumonia Supplemental oxygen Discussed with patient mother at the bedside. 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 History of Any Multi-Drug Resistant Organisms: None Reported Past Surgical History: Adenoidectomy, Ear Surgery, Orthopedic Surgery, Tonsillectomy Additional Past Surgical History / Comment(s): knee,tongue,eye surgery Past Psychological History: No Psychological Hx Reported Smoking Status: Never smoker Past Alcohol Use History: None Reported Past Drug Use History: None Reported
--- NOTE | 2024-09-11 23:50 | P.CONS ---
History of Present Illness - Reason for Consult Consult date: 09/11/24 Urine Legionella antigen positive Requesting physician: Kendall Harper - Chief Complaint Cough and vomiting x days - History of Present Illness Patient is a 33-year-old female with a past medical history significant for leoncio taybi syndrome, mental impairment patient has been brought into the hospital 2 days ago for evaluation of vomiting shortness of breath symptom has been going on for a day or 2 before the patient has been brought to the hospital patient cough has been moderately intense but not bringing up any sputum denies any headache or URI symptoms did have nausea and vomiting as mentioned above no abdominal pain no diarrhea on presentation to the hospital the patient was afebrile however the patient has been running a fever of 104 F with a temperature of 102 degrees Fahrenheit last evening patient was tachycardic but not hypotensive mildly hypoxic currently on supplemental oxygen did have elevated white count 15.87 with a left shift creatinine has been 0.70 electrolytes has been normal patient urine for Legionella antigen came back positive patient did have a chest x-ray with evidence of left midlung airspace opacity correlate for pneumonia patient was being treated with Rocephin and Zithromax infectious disease was consulted last evening for further management of antibiotic therapy I was able to switch her antibiotic therapy to Levaquin pending evaluation this morning and as of this morning the patient fever has resolved and seem to be breathing more comfortably as reported by the family at the bedside Review of Systems Positive point and negatives has been mentioned in the HPI, complete review of systems was performed and all other systems are negative 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 History of Any Multi-Drug Resistant Organisms: None Reported Past Surgical History: Adenoidectomy, Ear Surgery, Orthopedic Surgery, Tonsillectomy Additional Past Surgical History / Comment(s): knee,tongue,eye surgery Past Psychological History: No Psychological Hx Reported Smoking Status: Never smoker Past Alcohol Use History: None Reported Past Drug Use History: None Reported Medications and Allergies Home Medications Medication Instructions Recorded Confirmed Type Multivitamins, Thera [Multivitamin 2 tab PO DAILY 05/31/20 09/09/24 History (formulary)] Mv-Min/Vit C/Glut/Lysine/Hc124 3 tab PO DAILY 05/31/20 09/09/24 History [Airborne Tablet Chewable] Metoprolol Succinate (ER) [Toprol 100 mg PO DAILY 09/09/24 09/09/24 History XL] Metoprolol Succinate [Metoprolol 25 mg PO HS 09/09/24 09/09/24 History Succinate ER] Allergies Allergy/AdvReac Type Severity Reaction Status Date / Time Penicillins Allergy Anaphylaxis Verified 09/09/24 17:55 Physical Exam Vitals: Vital Signs Temp Pulse Resp BP Pulse Ox 09/11/24 07:00 98.3 F 95 19 144/88 96 09/11/24 01:15 99.2 F 95 18 136/89 97 09/10/24 19:51 100.1 F H 09/10/24 19:10 102.0 F H 114 H 22 148/88 95 09/10/24 13:05 98.8 F 118 H 16 160/83 98 Intake and Output 09/10/24 09/11/24 09/11/24 22:59 06:59 14:59 Other: Voiding Method Toilet # Voids 3 3 GENERAL DESCRIPTION: Middle-age female up in bed, no distress. No tachypnea or accessory muscle of respiration use. HEENT: Shows Pallor , no scleral icterus. Oral mucous membrane is dry. NECK: Trachea central, no thyromegaly. LUNGS: Unlabored breathing. Decreased breath sound at the base HEART: S1, S2, regular rate and rhythm. No loud murmur ABDOMEN: Soft, no tenderness , guarding or rigidity, no organomegaly EXTREMITIES: No edema of feet. SKIN: No rash, no masses palpable. NEUROLOGICAL: The patient is awake, alert, mood and affect normal. Results CBC & Chem 7: 09/11/24 04:00 09/11/24 04:03 Labs: Abnormal Lab Results - Last 24 Hours (Table) 09/10/24 09/11/24 09/11/24 Range/Units 07:50 04:00 04:03 WBC 11.66 H (4.50-10.00) 10*3/uL Immature Gran # 0.07 H (0.00-0.04) 10*3/uL Neutrophils # 9.16 H (1.80-7.70) 10*3/uL Glucose 123 H (74-99) mg/dL AST 123 H (14-36) U/L ALT 64 H (4-34) U/L Total Protein 6.2 L (6.3-8.2) g/dL Albumin 3.3 L (3.5-5.0) g/dL Urine Legionella Ag Positive A (Negative) Microbiology - Last 24 Hours (Table) 09/09/24 17:03 Blood Culture - Preliminary Blood Assessment and Plan (1) Sepsis Current Visit: Yes Status: Acute Code(s): A41.9 - SEPSIS, UNSPECIFIED ORGANISM SNOMED Code(s): 71237211 (2) Legionella pneumonia Current Visit: Yes Status: Acute Code(s): A48.1 - LEGIONNAIRES' DISEASE SNOMED Code(s): 233026154 (3) Penicillin allergy Current Visit: Yes Status: Acute Code(s): Z88.0 - ALLERGY STATUS TO PENICILLIN SNOMED Code(s): 00722233 Plan: 1patient presents the hospital with sepsis in this patient who did have fever tachycardia elevated white count meeting criteria for SIRS/sepsis source is a left midlung pneumonia now with urine positive for Legionella likely the infecting pathogen 2patient did have penicillin allergy that would limit the number of antibiotic safe to use 3Rocephin Zithromax has been discontinued 4-patient to be treated with Levaquin 750 mg daily and see clinic response Family the bedside multiple questions answered We will follow on clinical condition and cultures to further adjust medication if needed Thank you for this consultation we will follow the patient along with you Dictation was produced using [employer] dictation software. please excuse any grammatical, word or spelling errors. Time with Patient: Greater than 30
--- NOTE | 2024-09-12 15:00 | P.PN ---
Subjective Progress Note Date: 09/12/24 Principal diagnosis: Reason for follow-up is sepsis/pneumonia/Legionella Patient is a 33-year-old female with a past medical history significant for leoncio taybi syndrome, mental impairment patient has been brought into the hospital for evaluation of vomiting shortness of breath has been diagnosed with sepsis secondary to the left midlung pneumonia subsequently urine for Legionella antigen came back positive prompting this consultation. On today's evaluation that is 09/13/2023, patient did have a temperature of 98.6 F this morning and denies having any chills, patient is on room air however still seem to have a shortness of breath on minimal exertion denies any chest pain or worsening cough no further nausea vomiting or diarrhea reported by the family the bedside. No new lab has been obtained today blood cultures have been negative Objective - Vital Signs Vital signs: Vital Signs Temp 98.4 F 09/12/24 13:54 Pulse 94 09/12/24 13:54 Resp 16 09/12/24 13:54 BP 124/85 09/12/24 13:54 Pulse Ox 94 L 09/12/24 13:54 FiO2 Intake & Output 09/11/24 09/12/24 09/12/24 18:59 06:59 18:59 Other: Voiding Method Toilet # Voids 3 # Bowel Movements 0 - Exam GENERAL DESCRIPTION: Middle-age female up in the chair in no distress RESPIRATORY SYSTEM: Unlabored breathing , decreased breath sounds at bases HEART: S1 S2 regular rate and rhythm , ABDOMEN: Soft , no tenderness EXTREMITIES: No edema feet - Labs CBC & Chem 7: 09/11/24 04:00 09/11/24 04:03 Labs: Microbiology - Last 24 Hours (Table) 09/09/24 17:03 Blood Culture - Preliminary Blood Assessment and Plan (1) Sepsis Current Visit: Yes Status: Acute Code(s): A41.9 - SEPSIS, UNSPECIFIED ORGANISM SNOMED Code(s): 09988552 (2) Legionella pneumonia Current Visit: Yes Status: Acute Code(s): A48.1 - LEGIONNAIRES' DISEASE SN OMED Code(s): 797590186 (3) Penicillin allergy Current Visit: Yes Status: Acute Code(s): Z88.0 - ALLERGY STATUS TO PENICILLIN SNOMED Code(s): 42288952 Plan: 1patient presents the hospital with sepsis in this patient who did have fever tachycardia elevated white count meeting criteria for SIRS/sepsis source is a left midlung pneumonia now with urine positive for Legionella likely the infecting pathogen 2patient did have penicillin allergy that would limit the number of antibiotic safe to use 3patient did have resolution of her fever patient will be treated with Levaquin 750 mg daily and continue supportive care family the bedside question answered Dictation was produced using [employer] dictation software. please excuse any g rammatical, word or spelling errors. Time with Patient: Less than 30
--- NOTE | 2024-09-12 15:58 | P.PN ---
Progress Note - Text Progress Note Date: 09/12/24 Chief Complaint: Cough This is a pleasant 33-year-old patient with some mental impairment. History is obtained by patient's mother who is a nurse at the bedside. 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 Diagnosed by Dr. Villatoro at [facility]. It gives patient some mental impairment. Patient is able to read and do math. Patient also has a stiff hip. Also has trouble with the knee but high risk for surgery at the present time. 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 Has tachycardia resulting from COVID. On Saturday that is 4 days ago started up with a dry cough. Symptoms gradually became worse. And much so a lot of coughing yesterday. No no obvious fever at home. No sputum production. Decreased appetite. Finally decided come to the ER. In the ER patient did spike a fever 104. And a heart rate of 122. Being septic. Being admitted for the same. September 10: Patient admitted with severe sepsis pneumonia. IV ceftriaxone. Lactated Ringer's and IV ceftriaxone. Patient was seen this morning. Up in a chair. Had some chills. Grandmother at the bedside. Discussed. Some tachycardia. Lopressor increased to initially 25 twice daily.. Coughing is decreased. Had all of breakfast. September 11: Up in recliner. Mother at the bedside. Did spike her into fever last night. She looks better today. Eating 100%. Urine Legionella antigen came back positive. Antibiotic changed to Levaquin. Discussed with mother. Will watch all another 24 hours. September 12: Patient did walk couple of times with her mother. On room air. On Levaquin. Eating well. Cultures are pending. Does get bit tired. Otherwise doing better. Active Medications Acetaminophen (Acetaminophen Tab 500 Mg Tab) 500 mg PO Q6HR PRN PRN Reason: Fever and/ or Pain Last Admin: 09/10/24 21:21 Dose: 500 mg Enoxaparin Sodium (Enoxaparin 40 Mg/0.4 Ml Syringe) 40 mg SQ DAILY DAY Last Admin: 09/12/24 09:19 Dose: Not Given Levofloxacin (Levofloxacin 750 Mg Tab) 750 mg PO HS DAY; Protocol Last Admin: 09/11/24 19:55 Dose: 750 mg Metoprolol Succinate (Metoprolol Succinate (Er) 100 Mg Tab.Er.24h) 100 mg PO DAILY [facility] Last Admin: 09/12/24 09:17 Dose: 100 mg Metoprolol Tartrate (Metoprolol Tartrate 25 Mg Tab) 25 mg PO BID [facility] Last Admin: 09/12/24 09:17 Dose: 25 mg Miscellaneous Information (Pneumonia Protocol Utilized 1 Each Misc) 1 each PO ONCE PRN PRN Reason: Per Protocol Multivitamins (Multivitamins, Thera 1 Each Tab) 1 each PO DAILY [facility] Last Admin: 09/12/24 09:17 Dose: 1 each Naproxen (Naproxen 250 Mg Tab) 250 mg PO Q8HR PRN PRN Reason: pain Last Admin: 09/10/24 23:13 Dose: 250 mg Social history: Patient lives with her parents. No alcohol no smoking Physical examination: VITAL SIGNS: 98.6, 94, 16, 124/85, 94% room air GENERAL: BMI 44.6, up in a recliner. No perspiration EYES: Pupils equal. Conjunctiva melquiades l. HEENT: External appearance of nose and ears normal, oral cavity grossly normal.. 2 keloids on the right side of the neck NECK: JVD not raised; masses not palpable. HEART: First and second heart sounds are normal; no edema. LUNGS: Respiratory rate increased, diminished breath sounds. ABDOMEN: Soft, nontender, liver spleen not palpable, no masses palpable. PSYCH: Answering questions. A bit tired MUSCULOSKELETAL:No Clubbing/cyanosis;muscles-grossly intact INVESTIGATIONS, reviewed in the clinical context: September 11: White count 9.6 hemoglobin 13.5 potassium 4.3 creatinine 0.56 Urine Legionella antigen positive September 09, 2024: White count 15.8 hemoglobin 15 platelets 208 sodium 139 potassium 4.3 BUN 9 creatinine 0.7 Troponin I less than 0.012 EKG tracing personally reviewed by me-normal sinus rhythm. Heart rate 111 Chest x-ray film personally reviewed by me-significant infiltrate in the left middle lower lobe Assessment plan: - Severe bilobar pneumonia s secondary to Legionella causing hypoxic sepsis: Improving Levaquin Urine Legionella antigen positive IV fluids. 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 Currently high risk for surgery being followed by orthopedics. - Acute hypoxic respiratory failure from pneumonia: Improving Supplemental oxygen Discussed with patient and mother at the bedside. Increase activity. Hopefully discharge tomorrow 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 History of Any Multi-Drug Resistant Organisms: None Reported Past Surgical History: Adenoidectomy, Ear Surgery, Orthopedic Surgery, Tonsillectomy Additional Past Surgical History / Comment(s): knee,tongue,eye surgery Past Psychological History: No Psychological Hx Reported Smoking Status: Never smoker Past Alcohol Use History: None Reported Past Drug Use History: None Reported
[2024-09-13 09:57] VITALS: RESP 16
[2024-09-13 13:43] VITALS: BP 139/87; PULSE 93; TEMP 98.6
--- NOTE | 2024-09-13 15:50 | P.PN ---
Subjective Progress Note Date: 09/13/24 Principal diagnosis: Reason for follow-up is sepsis/pneumonia/Legionella Patient is a 33-year-old female with a past medical history significant for leoncio taybi syndrome, mental impairment patient has been brought into the hospital for evaluation of vomiting shortness of breath has been diagnosed with sepsis secondary to the left midlung pneumonia subsequently urine for Legionella antigen came back positive prompting this consultation. On today's evaluation that is 09/13/2024, Patient is afebrile patient is currently on room air and denies having any shortness of breath, the patient denies any chest pain and cough is decreased in intensity, no vomiting diarrhea that she is reported. No new lab has been obtained today Objective - Vital Signs Vital signs: Vital Signs Temp 98.4 F 09/13/24 07:40 Pulse 94 09/13/24 07:40 Resp 16 09/13/24 07:40 BP 154/94 09/13/24 07:40 Pulse Ox 96 09/13/24 07:40 FiO2 Intake & Output 09/12/24 09/13/24 09/13/24 18:59 06:59 18:59 Intake Total 540 Balance 540 Intake: Oral 540 Other: Voiding Method Toilet # Voids 3 2 # Bowel Movements 1 - Exam GENERAL DESCRIPTION: Middle-age female up in the chair in no distress RESPIRATORY SYSTEM: Unlabored breathing , decreased breath sounds at bases HEART: S1 S2 regular rate and rhythm , ABDOMEN: Soft , no tenderness EXTREMITIES: No edema feet - Labs CBC & Chem 7: 09/11/24 04:00 09/11/24 04:03 Labs: Microbiology - Last 24 Hours (Table) 09/09/24 17:03 Blood Culture - Preliminary Blood Assessment and Plan (1) Sepsis Status: Acute Code(s): A41.9 - SEPSIS, UNSPECIFIED ORGANISM SNOMED Code(s): 09109206 (2) Legionella pneumonia Status: Acute Code(s): A48.1 - LEGIONNAIRES' DISEASE SNOMED Code(s): 966770109 (3) Penicillin allergy Status: Acute Code(s): Z88.0 - ALLERGY STATUS TO PENICILLIN SNOMED Code(s): 48152670 Plan: 1patient presents the hospital with sepsis in this patient who did have fever tachycardia elevated white count meeting criteria for SIRS/sepsis source is a left midlung pneumonia now with urine positive for Legionella likely the infecting pathogen 2patient did have penicillin allergy that would limit the number of antibiotic safe to use 3patient did have resolution of her fever on oral Levaquin and improvement respiratory symptoms, she will need total of 2-week course of therapy outpatient prescription has been sent to the pharmacy question concern answered Dictation was produced using [email or web address] dictation software. please excuse any grammatical, word or spelling errors.
--- NOTE | 2024-09-13 16:40 | P.PN ---
Progress Note - Text Progress Note Date: 09/13/24 Chief Complaint: Cough This is a pleasant 33-year-old patient with some mental impairment. History is obtained by patient's mother who is a nurse at the bedside. 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 Diagnosed by Dr. Villatoro at [facility]. It gives patient some mental impairment. Patient is able to read and do math. Patient also has a stiff hip. Also has trouble with the knee but high risk for surgery at the present time. 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 Has tachycardia resulting from COVID. On Saturday that is 4 days ago started up with a dry cough. Symptoms gradually became worse. And much so a lot of coughing yesterday. No no obvious fever at home. No sputum production. Decreased appetite. Finally decided come to the ER. In the ER patient did spike a fever 104. And a heart rate of 122. Being septic. Being admitted for the same. September 10: Patient admitted with severe sepsis pneumonia. IV ceftriaxone. Lactated Ringer's and IV ceftriaxone. Patient was seen this morning. Up in a chair. Had some chills. Grandmother at the bedside. Discussed. Some tachycardia. Lopressor increased to initially 25 twice daily.. Coughing is decreased. Had all of breakfast. September 11: Up in recliner. Mother at the bedside. Did spike her into fever last night. She looks better today. Eating 100%. Urine Legionella antigen came back positive. Antibiotic changed to Levaquin. Discussed with mother. Will watch all another 24 hours. September 12: Patient did walk couple of times with her mother. On room air. On Levaquin. Eating well. Cultures are pending. Does get bit tired. Otherwise doing better. September 13: Doing well. Breathing much improved. Eating well. On room air. Will discharge on Levaquin for 10 days. Discussed with mother at the bedside. Social history: Patient lives with her parents. No alcohol no smoking Physical examination: VITAL SIGNS: 98.6, 93, 16, 1 3987, 96% room air GENERAL: BMI 44.6, up in a recliner. Comfortable EYES: Pupils equal. Conjunctiva melquiades l. HEENT: External appearance of nose and ears normal, oral cavity grossly normal.. 2 keloids on the right side of the neck NECK: JVD not raised; masses not palpable. HEART: First and second heart sounds are normal; no edema. LUNGS: Respiratory rate increased, diminished breath sounds. ABDOMEN: Soft, nontender, liver spleen not palpable, no masses palpable. PSYCH: Answering questions. Appears comfortable. Neurological: Hand Tics, head shaking movements MUSCULOSKELETAL:No Clubbing/cyanosis;muscles-grossly intact INVESTIGATIONS, reviewed in the clinical context: September 11: White count 9.6 hemoglobin 13.5 potassium 4.3 creatinine 0.56 Urine Legionella antigen positive September 09, 2024: White count 15.8 hemoglobin 15 platelets 208 sodium 139 potassium 4.3 BUN 9 creatinine 0.7 Troponin I less than 0.012 EKG tracing personally reviewed by me-normal sinus rhythm. Heart rate 111 Chest x-ray film personally reviewed by me-significant infiltrate in the left middle lower lobe Assessment plan: - Severe bilobar pneumonia s secondary to Legionella causing hypoxic sepsis: Improving Levaquin Urine Legionella antigen positive IV fluids. Blood culture pending Discharged on Levaquin 750 mg a day for 10 days - Sinus tachycardia from sepsis Toprol-XL - Chronic sinus tachycardia from previous COVID Toprol-XL. 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 Currently high risk for surgery being followed by [facility]. - Acute hypoxic respiratory failure from pneumonia: Resolved Supplemental oxygen Disposition: Home 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 History of Any Multi-Drug Resistant Organisms: None Reported Past Surgical History: Adenoidectomy, Ear Surgery, Orthopedic Surgery, Tonsillectomy Additional Past Surgical History / Comment(s): knee,tongue,eye surgery Past Psychological History: No Psychological Hx Reported Smoking Status: Never smoker Past Alcohol Use History: None Reported Past Drug Use History: None Reported
== END 2024-09-13 15:18 | disposition home or self-care (01) | DRG 871 ==
LOC: EC 14:58 → 4SSUR 16:50
PROVIDERS: ADMIT Hospitalist; ATTEND Hospitalist
DX: A41.89 Other specified sepsis (principal); A48.1 Legionnaires' disease; J96.01 Acute respiratory failure with hypoxia; Q87.2 Congenital malformation syndromes predominantly involving limbs; R65.20 Severe sepsis without septic shock; Z79.899 Other long term (current) drug therapy; H91.92 Unspecified hearing loss, left ear; Z88.0 Allergy status to penicillin; R00.0 Tachycardia, unspecified; U09.9 Post COVID-19 condition, unspecified; M13.862 Other specified arthritis, left knee
CPT/HCPCS: 36415; 71046; 80053; 83605; 84484; 85025; 85610; 85730; 87040; 87449; 93005; 96361; 96365; 96368; 96375; 99291